=== PATIENT | male | born 1955 | race Hispanic/Latino ===

== ENCOUNTER 2018-06-30 13:25 | Emergency (ER) | payer MEDICARE ==
[2018-06-30] MEDS ORDERED: KETOROLAC TROMETHAMINE 30MG/ML ONE (13:38)
[2018-06-30] MEDS ORDERED: DIAZEPAM 2 MG TAB ONE (14:30)
[2018-06-30] MEDS ORDERED: METHYLPREDNISOLONE SOD SUCC 125MG/2ML VIAL ONE (14:30)
== END 2018-06-30 16:45 | disposition home or self-care (01) ==
LOC: EDH 13:25
DX: M54.41 Lumbago with sciatica, right side (principal); Z98.890 Other specified postprocedural states
CPT/HCPCS: 72100; 96372 ×2; 99284; J1885; J2930

== ENCOUNTER 2018-10-16 15:20 | Emergency (ER) | payer MEDICARE ==
[2018-10-16] MEDS ORDERED: KETOROLAC TROMETHAMINE 30MG/ML ONE (16:05)
[2018-10-16] MEDS ORDERED: METHYLPREDNISOLONE SOD SUCC 125MG/2ML VIAL ONE (16:05)
== END 2018-10-16 17:29 | disposition home or self-care (01) ==
LOC: EDH 15:20
DX: M54.16 Radiculopathy, lumbar region (principal); R60.0 Localized edema; Z90.49 Acquired absence of other specified parts of digestive tract
CPT/HCPCS: 93971; 96372 ×2; 99284; J1885; J2930

== ENCOUNTER 2021-08-22 04:18 | Emergency (ER) | payer MEDICARE, OTHER ==
[2021-08-22] MEDS ORDERED: TETANUS/DIPHTHERIA TOXOID [ADULT] 0.5 ML VIAL IM ONE (04:30)
[2021-08-22 04:36] LABS: BASOPHILS % (AUTO) 0.5 % (0.0-5.0); EOSINOPHILS % (AUTO) 2.3 % (0.0-8.0); LYMPHOCYTES % (AUTO) 48.4 % (21.0-51.0); MEAN CORPUSCULAR HEMOGLOBIN 32.9 pg (27.0-33.0); MEAN CORPUSCULAR HGB CONC 35.4 g/dL (32.0-36.0); MEAN CORPUSCULAR VOLUME 93.1 fL (79-99); MONOCYTES % (AUTO) 6.7 % (3.0-13.0); NEUTROPHILS % (AUTO) 40.9 % (40.0-77.0); PLATELET COUNT (AUTO) 237 K/uL (130-400); RED BLOOD CELL COUNT(AUTO) 4.19 MIL/uL (4.50-6.20); RED CELL DISTRIBUTION WIDTH 13.1 % (11.0-15.5); WHITE BLOOD COUNT (AUTO) 7.8 K/uL (4.8-10.8)
[2021-08-22] MEDS ORDERED: LIDOCAINE HCL MPF 1% 5ML VIAL ONE (04:43)
[2021-08-22 04:48] LABS: INR 0.93 (0.85-1.15)
[2021-08-22 04:50] LABS: PARTIAL THROMBOPLASTIN TIME 23.9 SEC (26.3-35.5)
[2021-08-22] MEDS ORDERED: LIDOCAINE HCL 400MG/20ML VIAL ONE (05:08)
[2021-08-22 05:10] LABS: POTASSIUM 3.5 mmol/L (3.5-5.1)
[2021-08-22 05:14] LABS: ALBUMIN 3.2 g/dL (3.5-5.0); BILIRUBIN,TOTAL 0.4 mg/dL (0.2-1.0)
[2021-08-22 06:08] VITALS: BP 131/74
[2021-08-22] MEDS ORDERED: BENZONATATE 100 MG CAPSULE PO ONE (06:18)
[2021-08-22] MEDS ORDERED: KETOROLAC 30MG VIAL (30MG/ML) ONE (06:18)
[2021-08-22] MEDS ORDERED: 0.9%NACL 1000ML 1,000 ML IV SCH (07:30)
[2021-08-22] MEDS ORDERED: CEFAZOLIN SODIUM 1 GM VIAL IVP SCH (07:30)
[2021-08-22] MEDS ORDERED: IBUP-2070 PO (08:01)
== END 2021-08-22 08:30 | disposition home or self-care (01) ==
LOC: EDH 04:18
DX: U07.1 COVID-19 (principal); S71.111A Laceration without foreign body, right thigh, initial encounter; S01.01XA Laceration without foreign body of scalp, initial encounter; S81.011A Laceration without foreign body, right knee, initial encounter; S20.211A Contusion of right front wall of thorax, initial encounter; S50.12XA Contusion of left forearm, initial encounter; S50.11XA Contusion of right forearm, initial encounter; S80.12XA Contusion of left lower leg, initial encounter; E86.0 Dehydration; Y00.XXXA Assault by blunt object, initial encounter; Y93.89 Activity, other specified; Y92.89 Other specified places as the place of occurrence of the external cause; Y99.8 Other external cause status
CPT/HCPCS: 12004; 36415; 70450; 71250; 72125; 73562; 74176; 80053; 83735; 84484; 85025; 85610; 85730; 87635; 87804 ×2; 90471; 90714; 93005; 96361; 96374; 96375; 99285; C9803; J0690; J1885; J3490 ×2; J7030

== ENCOUNTER 2021-09-21 18:30 | Emergency (ER) | payer MEDICARE ==
[~2021-09-21] VITALS: Ht 167.6 cm; Wt 95.3 kg
[~2021-09-21 18:30] MED LIST: IBUP-2070 PO
[2021-09-21 18:31] VITALS: BP 138/73
== END 2021-09-21 19:09 | disposition home or self-care (01) ==
LOC: EDH 18:30
DX: S81.811D Laceration without foreign body, right lower leg, subsequent encounter (principal); S01.01XD Laceration without foreign body of scalp, subsequent encounter; Z79.1 Long term (current) use of non-steroidal anti-inflammatories (NSAID); X58.XXXD Exposure to other specified factors, subsequent encounter
CPT/HCPCS: 99281

== ENCOUNTER 2022-01-14 12:53 | Emergency (ER) | payer MEDICARE ==
[~2022-01-14] VITALS: Ht 167.6 cm; Wt 90.7 kg
[2022-01-14 13:48] LABS: BASOPHILS % (AUTO) 0.9 % (0.0-5.0); EOSINOPHILS % (AUTO) 0.7 % (0.0-8.0); HEMATOCRIT 41.7 % (42-54); MEAN CORPUSCULAR HEMOGLOBIN 31.9 pg (27.0-33.0); MEAN CORPUSCULAR HGB CONC 34.5 g/dL (32.0-36.0); MEAN CORPUSCULAR VOLUME 92.3 fL (79-99); MONOCYTES % (AUTO) 6.3 % (3.0-13.0); NEUTROPHILS % (AUTO) 57.8 % (40.0-77.0); PLATELET COUNT (AUTO) 174 K/uL (130-400); RED BLOOD CELL COUNT(AUTO) 4.52 MIL/uL (4.50-6.20); RED CELL DISTRIBUTION WIDTH 12.5 % (11.0-15.5); WHITE BLOOD COUNT (AUTO) 5.8 K/uL (4.8-10.8)
[2022-01-14 13:52] VITALS: BP 143/99
[2022-01-14 14:11] LABS: INR 0.98 (0.85-1.15); PROTHROMBIN TIME 10.7 SEC (9.6-11.6)
[2022-01-14 14:12] LABS: APPEARANCE,URINE CLEAR (CLEAR); BILIRUBIN,URINE NEGATIVE (NEGATIVE); COLOR,URINE YELLOW (YELLOW); GLUCOSE, URINE (UA) 30 mg/dL (NEGATIVE); KETONES,URINE NEGATIVE (NEGATIVE); LEUKOCYTE ESTERASE ,URINE NEGATIVE Leu/uL (NEGATIVE); NITRATE,URINE NEGATIVE (NEGATIVE); OCCULT BLOOD,URINE NEGATIVE (NEGATIVE); PROTEIN,URINE 30 mg/dL (NEGATIVE); UROBILINOGEN,URINE 0.2 mg/dL (0.2-1.0)
[2022-01-14 14:16] LABS: POTASSIUM 3.9 mmol/L (3.5-5.1)
[2022-01-14] MEDS ORDERED: GADOTERATE MEGLUMINE 10 MMOL/20 ML VIAL IV ONE (14:20)
[2022-01-14 14:21] LABS: ALBUMIN 3.7 g/dL (3.5-5.0); TOTAL PROTEIN, SERUM 7.4 g/dL (6.0-8.3)
[2022-01-14 14:26] LABS: BACTERIA,URINE RARE /HPF (None Seen); MUCUS,URINE MOD LPF (None Seen); RBC,URINE 0-1 /HPF (0-1)
[2022-01-14 15:50] LABS: AMPHET/METH SCREEN,URINE NEGATIVE (NEGATIVE); BARBITURATE SCREEN, URINE NEGATIVE (NEGATIVE); BENZODIAZEPINES SCREEN,URINE POSITIVE (NEGATIVE); CANNABINOID SCREEN,URINE NEGATIVE (NEGATIVE); COCAINE SCREEN,URINE NEGATIVE (NEGATIVE); OPIATE SCREEN,URINE NEGATIVE (NEGATIVE); PHENCYCLIDINE SCREEN,URINE NEGATIVE (NEGATIVE)
== END 2022-01-14 15:56 | disposition home or self-care (01) ==
LOC: EDH 12:53
DX: H49.02 Third [oculomotor] nerve palsy, left eye (principal); Z86.73 Personal history of transient ischemic attack (TIA), and cerebral infarction without residual deficits
CPT/HCPCS: 70551; 99285; 70450; 71045; 84484; 80053; 80305; 85025; 85610; 82948; 36415; 70549; 93005; 70544; 81001; A9575

== ENCOUNTER 2022-06-10 13:21 | Emergency (ER) | payer MEDICARE, OTHER ==
[~2022-06-10] VITALS: Ht 167.6 cm; Wt 52.2 kg
[2022-06-10 13:29] VITALS: BP 112/74
[2022-06-10 15:46] LABS: BASOPHILS % (AUTO) 0.7 % (0.0-5.0); EOSINOPHILS % (AUTO) 1.2 % (0.0-8.0); HEMATOCRIT 33.1 % (42-54); MEAN CORPUSCULAR HGB CONC 32.3 g/dL (32.0-36.0); MEAN CORPUSCULAR VOLUME 95.9 fL (79-99); NEUTROPHILS % (AUTO) 69.7 % (40.0-77.0); PLATELET COUNT (AUTO) 320 K/uL (130-400); RED BLOOD CELL COUNT(AUTO) 3.45 MIL/uL (4.50-6.20); RED CELL DISTRIBUTION WIDTH 13.9 % (11.0-15.5); WHITE BLOOD COUNT (AUTO) 7.5 K/uL (4.8-10.8)
[2022-06-10 15:51] LABS: CREATININE 0.8 mg/dL (0.5-1.5); POTASSIUM 3.2 mmol/L (3.5-5.1)
[2022-06-10 15:55] LABS: INR 1.03 (0.85-1.15); PROTHROMBIN TIME 11.2 SEC (9.6-11.6)
[2022-06-10 15:56] LABS: PARTIAL THROMBOPLASTIN TIME 28.1 SEC (26.3-35.5)
[2022-06-10] MEDS ORDERED: POTASSIUM BICARB/CIT AC 25 MEQ TABLET.EFF PO ONE (16:00)
[2022-06-10 16:04] LABS: ALBUMIN 3.1 g/dL (3.5-5.0); THYROID STIMULATING HORMONE 1.04 uIU/mL (0.36-3.74); TOTAL PROTEIN, SERUM 6.8 g/dL (6.0-8.3)
[2022-06-10] MEDS ORDERED: HYDR25CA PO (16:12)
[2022-06-10 16:21] LABS: B-TYPE NATRIURETIC PEPTIDE 14 pg/mL (0-100)
[2022-06-10 16:53] LABS: APPEARANCE,URINE CLOUDY (CLEAR); BILIRUBIN,URINE NEGATIVE (NEGATIVE); COLOR,URINE YELLOW (YELLOW); GLUCOSE, URINE (UA) NEGATIVE (NEGATIVE); KETONES,URINE NEGATIVE (NEGATIVE); LEUKOCYTE ESTERASE ,URINE 500 Leu/uL (NEGATIVE); NITRATE,URINE NEGATIVE (NEGATIVE); PH,URINE 5.5 (5.0-8.0); PROTEIN,URINE 30 mg/dL (NEGATIVE); UROBILINOGEN,URINE 0.2 mg/dL (0.2-1.0)
[2022-06-10 16:58] LABS: BACTERIA,URINE FEW /HPF (None Seen); MUCUS,URINE FEW LPF (None Seen); WBC,URINE TNTC /HPF (0-1)
== END 2022-06-10 17:00 | disposition home or self-care (01) ==
LOC: EDH 13:21
DX: R20.2 Paresthesia of skin (principal); G47.00 Insomnia, unspecified; E11.9 Type 2 diabetes mellitus without complications; E78.00 Pure hypercholesterolemia, unspecified; I10 Essential (primary) hypertension; Z79.1 Long term (current) use of non-steroidal anti-inflammatories (NSAID); Z86.73 Personal history of transient ischemic attack (TIA), and cerebral infarction without residual deficits; Z90.49 Acquired absence of other specified parts of digestive tract
CPT/HCPCS: 36415; 70450; 71045; 80053; 81001; 83880; 84443; 84484; 85025; 85610; 85730; 87077; 87088; 87186; 93005

== ENCOUNTER 2022-08-06 10:31 | Emergency (ER) | payer OTHER ==
[~2022-08-06] VITALS: Ht 167.6 cm; Wt 68.0 kg
[~2022-08-06 10:31] MED LIST changes: +HYDR25CA PO
[2022-08-06 11:12] LABS: BASOPHILS % (AUTO) 0.5 % (0.0-5.0); EOSINOPHILS % (AUTO) 0.4 % (0.0-8.0); MEAN CORPUSCULAR HEMOGLOBIN 30.5 pg (27.0-33.0); MEAN CORPUSCULAR HGB CONC 33.4 g/dL (32.0-36.0); MEAN CORPUSCULAR VOLUME 91.1 fL (79-99); MONOCYTES % (AUTO) 5.2 % (3.0-13.0); NEUTROPHILS % (AUTO) 81.5 % (40.0-77.0); PLATELET COUNT (AUTO) 240 K/uL (130-400); RED BLOOD CELL COUNT(AUTO) 3.84 MIL/uL (4.50-6.20); RED CELL DISTRIBUTION WIDTH 13.3 % (11.0-15.5)
[2022-08-06 11:23] LABS: INR 0.98 (0.85-1.15); PROTHROMBIN TIME 10.7 SEC (9.6-11.6)
[2022-08-06 12:42] LABS: ALBUMIN 3.5 g/dL (3.5-5.0); CREATININE 0.6 mg/dL (0.5-1.5); POTASSIUM 3.7 mmol/L (3.5-5.1); TOTAL PROTEIN, SERUM 6.9 g/dL (6.0-8.3)
[2022-08-06] MEDS ORDERED: ASPIRIN 81MG CHEW TAB PO ONE (16:00)
[2022-08-06 19:10] VITALS: BP 113/68
[2022-08-06] MEDS ORDERED: IOHEXOL-350 75 ML VIAL IV ONE (20:05)
== END 2022-08-07 04:00 | disposition short-term general hospital (02) ==
LOC: EDH 10:31
DX: I63.9 Cerebral infarction, unspecified (principal); E11.9 Type 2 diabetes mellitus without complications; E78.00 Pure hypercholesterolemia, unspecified; I10 Essential (primary) hypertension; Z79.02 Long term (current) use of antithrombotics/antiplatelets; Z79.82 Long term (current) use of aspirin; Z86.73 Personal history of transient ischemic attack (TIA), and cerebral infarction without residual deficits; Z90.49 Acquired absence of other specified parts of digestive tract; Z99.3 Dependence on wheelchair; Z20.822 Contact with and (suspected) exposure to COVID-19
CPT/HCPCS: 99285; 70450; 87635; 84484; 80053; 85025; 85610; 36415; 70496; 70498; 93005; C9803; Q9967

== ENCOUNTER 2022-09-11 00:30 | Emergency (ER) | payer OTHER ==
[2022-09-11] MEDS ORDERED: MORPHINE 2 MG SYG ONE (03:51)
[2022-09-11] MEDS ORDERED: MORPHINE 2 MG SYG IM STA (03:54)
[2022-09-11 05:00] VITALS: BP 128/65
== END 2022-09-11 04:06 | disposition home or self-care (01) ==
LOC: EDH 00:30
DX: G89.29 Other chronic pain (principal); M79.601 Pain in right arm; R13.10 Dysphagia, unspecified; E11.42 Type 2 diabetes mellitus with diabetic polyneuropathy; I10 Essential (primary) hypertension; E78.00 Pure hypercholesterolemia, unspecified; Z90.49 Acquired absence of other specified parts of digestive tract; Z86.73 Personal history of transient ischemic attack (TIA), and cerebral infarction without residual deficits; Z98.890 Other specified postprocedural states; Z79.899 Other long term (current) drug therapy
CPT/HCPCS: 99284; 96372; J2270